=== PATIENT | male | born 1940 | race Caucasian/White ===

== ENCOUNTER 2024-01-14 21:39 | Inpatient (IN) | payer OTHER ==
[~2024-01-14] VITALS: Ht 170.2 cm; Wt 81.6 kg
[2024-01-14 21:50] VITALS: BP_SYST 220; PULSE 69; RESP 20; TEMP 98.4; O2SAT 97
[2024-01-14] MEDS: hydrALAZINE HCL 20 MG/ML VIAL IVP ONE ×2 (22:33→22:58)
[2024-01-14 23:08] LABS: BASOPHILS % (AUTO) 0.6 % (0.0-2.0); EOSINOPHILS # (AUTO) 0.2 K/uL (0.0-0.4); EOSINOPHILS % (AUTO) 2.6 % (0.0-4.0); HEMATOCRIT 34.9 % (36-54); HEMOGLOBIN 12.4 g/dL (14.0-18.0); LYMPHOCYTES # (AUTO) 1.7 K/uL (1.0-5.5); LYMPHOCYTES % (AUTO) 28.7 % (20.5-51.5); MEAN CORPUSCULAR HEMOGLOBIN 34 pg (27-31); MEAN CORPUSCULAR HGB CONC 35 % (32-36); MEAN CORPUSCULAR VOLUME 95 fL (79.0-98.0); MONOCYTES # (AUTO) 0.3 K/uL (0.0-1.0); MONOCYTES % (AUTO) 5.6 % (1.7-9.3); NEUTROPHILS # (AUTO) 3.8 K/uL (1.8-7.7); NEUTROPHILS % (AUTO) 62.5 % (40.0-70.0); PLATELET COUNT (AUTO) 76 K/uL (130-430); RED BLOOD CELL COUNT(AUTO) 3.67 MIL/uL (4.2-6.2); RED CELL DISTRIBUTION WIDTH 14.3 % (9.0-15.0)
[2024-01-14 23:12] LABS: INR 1.1 (0.80-1.20); PROTHROMBIN TIME 10.9 SECS (9.5-12.5)
[2024-01-14 23:31] LABS: ALANINE AMINOTRANSFERASE 34 U/L (12-78); ALBUMIN 3.2 g/dL (3.4-4.8); ANION GAP 10 (5-15); ASPARTATE AMINOTRANSFERASE 21 U/L (10-37); BILIRUBIN,DIRECT 0.1 mg/dL (0.0-0.3); CALCIUM 8.3 mg/dL (8.4-11.0); CARBON DIOXIDE 24 mmol/L (23-29); CHLORIDE 105 mmol/L (98-107); GLUCOSE 92 mg/dL (74-106); POTASSIUM 3.9 mmol/L (3.5-5.1); SODIUM SERUM 139 mmol/L (136-145); TOTAL BILIRUBIN 0.5 mg/dL (0.0-1.0); TOTAL PROTEIN, SERUM 6.3 g/dL (6.4-8.3); UREA NITROGEN, BLOOD 32 mg/dL (8-21)
[2024-01-14 23:47] LABS: BILIRUBIN,URINE NEGATIVE (NEGATIVE); BLOOD, URINE 2+ (NEGATIVE); COLOR,URINE YELLOW (YELLOW); GLUCOSE,URINE NEGATIVE (NEGATIVE); KETONES,URINE NEGATIVE (NEGATIVE); LEUKOCYTE ESTERASE ,URINE NEGATIVE (NEGATIVE); NITRITE, URINE NEGATIVE (NEGATIVE); PROTEIN URINE 3+ (NEGATIVE); UROBILINOGEN,URINE 0.2 (0.2-1.0)
[2024-01-14 23:55] LABS: CLARITY/URINE HAZY (CLEAR)
[2024-01-14 23:56] LABS: BACTERIA,URINE None Seen /HPF (None Seen); RBC,URINE 20-50 /HPF (0-3); WBC,URINE 0-3 /HPF (0-3)
[2024-01-15] MEDS: FUROSEMIDE 100 MG/10 ML VIAL IVP ONE (00:48)
[2024-01-15] MEDS: cloNIDine HCL 0.1 MG TABLET PO PRN (02:04)
[2024-01-15] MEDS ORDERED: HYDR50TA45 PO (03:07)
[2024-01-15] MEDS: hydrALAZINE HCL 20 MG/ML VIAL IVP SCH ×3 (03:15→20:36)
[2024-01-15] MEDS ORDERED: PRAV40TA63 PO (04:16)
[2024-01-15] MEDS ORDERED: TAMS0.4C96 PO (04:16)
[2024-01-15] MEDS ORDERED: LISI40TA13 PO (04:16)
[2024-01-15] MEDS ORDERED: MIRT45TA83 PO (04:16)
[2024-01-15] MEDS ORDERED: ASPI-1393 PO (04:16)
[2024-01-15] MEDS ORDERED: ESCI10TA PO (04:16)
[2024-01-15] MEDS ORDERED: FINA-37 PO (04:16)
[2024-01-15] MEDS ORDERED: CLOP75TA32 PO (04:16)
[2024-01-15] MEDS ORDERED: AMLO2.5T2 PO (04:16)
[2024-01-15] MEDS ORDERED: hydrALAZINE HCL 20 MG/ML VIAL IVP SCH (06:00)
[2024-01-15 08:00] VITALS: BP_SYST 197; PULSE 62; RESP 18; TEMP 98.5
[2024-01-15] MEDS ORDERED: hydrALAZINE HCL 25 MG TABLET PO SCH (09:00)
[2024-01-15] MEDS ORDERED: amLODIPine BESYLATE 5 MG TABLET PO SCH (09:00)
[2024-01-15] MEDS: FINASTERIDE 5 MG TABLET (PROSCAR) PO SCH (10:45)
[2024-01-15] MEDS: ASPIRIN 81 MG TABLET(ECOTRIN) PO SCH (10:45)
[2024-01-15] MEDS: CITALOPRAM HYDROBROMIDE 20 MG TABLET PO SCH (10:45)
[2024-01-15] MEDS: TAMSULOSIN HCL 0.4 MG CAP PO SCH (10:45)
[2024-01-15] MEDS: CLOPIDOGREL BISULFATE 75 MG TABLET PO SCH (10:48)
[2024-01-15 11:03] LABS: BASOPHILS % (AUTO) 0.8 % (0.0-2.0); EOSINOPHILS # (AUTO) 0.1 K/uL (0.0-0.4); EOSINOPHILS % (AUTO) 1.2 % (0.0-4.0); HEMATOCRIT 36.4 % (36-54); HEMOGLOBIN 12.6 g/dL (14.0-18.0); LYMPHOCYTES # (AUTO) 1.7 K/uL (1.0-5.5); LYMPHOCYTES % (AUTO) 28.6 % (20.5-51.5); MEAN CORPUSCULAR HEMOGLOBIN 34 pg (27-31); MEAN CORPUSCULAR HGB CONC 35 % (32-36); MEAN CORPUSCULAR VOLUME 97 fL (79.0-98.0); MONOCYTES # (AUTO) 0.4 K/uL (0.0-1.0); MONOCYTES % (AUTO) 5.9 % (1.7-9.3); NEUTROPHILS # (AUTO) 3.8 K/uL (1.8-7.7); NEUTROPHILS % (AUTO) 63.5 % (40.0-70.0); PLATELET COUNT (AUTO) 81 K/uL (130-430); RED BLOOD CELL COUNT(AUTO) 3.76 MIL/uL (4.2-6.2); RED CELL DISTRIBUTION WIDTH 14.6 % (9.0-15.0)
[2024-01-15 12:18] LABS: ALANINE AMINOTRANSFERASE 26 U/L (12-78); ALBUMIN 3.2 g/dL (3.4-4.8); ANION GAP 11 (5-15); ASPARTATE AMINOTRANSFERASE 18 U/L (10-37); CALCIUM 8.3 mg/dL (8.4-11.0); CARBON DIOXIDE 23 mmol/L (23-29); CHLORIDE 107 mmol/L (98-107); CREATININE 2.31 mg/dL (0.55-1.30); GLUCOSE 101 mg/dL (74-106); POTASSIUM 4.6 mmol/L (3.5-5.1); SODIUM SERUM 141 mmol/L (136-145); TOTAL BILIRUBIN 0.5 mg/dL (0.0-1.0); TOTAL PROTEIN, SERUM 6.2 g/dL (6.4-8.3); UREA NITROGEN, BLOOD 34 mg/dL (8-21)
[2024-01-15 12:30] VITALS: BP_SYST 185; PULSE 90; RESP 18; TEMP 98.3; O2SAT 95
[2024-01-15] MEDS: amLODIPine BESYLATE 5 MG TABLET PO ONE (12:30)
[2024-01-15] MEDS: hydrALAZINE HCL 20 MG/ML VIAL IVP ONE (15:52)
[2024-01-15 16:01] VITALS: BP_SYST 195; PULSE 65; RESP 18; TEMP 98.5; O2SAT 96
[2024-01-15] MEDS: LEVOTHYROXINE SODIUM 0.05 MG TABLET PO ONE (18:49)
[2024-01-15] MEDS: ONDANSETRON HCL 4 MG/2 ML VIAL IVP PRN (18:49)
[2024-01-15] MEDS: FUROSEMIDE 20 MG/2 ML VIAL IVP ONE (18:50)
[2024-01-15 20:00] VITALS: O2SAT 95
[2024-01-15 20:10] VITALS: BP_SYST 186; PULSE 67; RESP 18; TEMP 98.3; O2SAT 95
[2024-01-15] MEDS: MIRTAZAPINE 15 MG TABLET PO SCH (20:35)
[2024-01-15] MEDS: FUROSEMIDE 20 MG/2 ML VIAL IVP SCH (20:37)
[2024-01-16] VITALS (9 sets, daily range): BP systolic 164–178; PULSE 59–75; RESP 16–19; TEMP 98–98.9; O2SAT 95–98
[2024-01-16 05:59] LABS: BASOPHILS % (AUTO) 0.3 % (0.0-2.0); EOSINOPHILS % (AUTO) 0.6 % (0.0-4.0); HEMATOCRIT 36.2 % (36-54); HEMOGLOBIN 12.6 g/dL (14.0-18.0); LYMPHOCYTES # (AUTO) 1.8 K/uL (1.0-5.5); LYMPHOCYTES % (AUTO) 26.4 % (20.5-51.5); MEAN CORPUSCULAR HEMOGLOBIN 34 pg (27-31); MEAN CORPUSCULAR HGB CONC 35 % (32-36); MEAN CORPUSCULAR VOLUME 97 fL (79.0-98.0); MONOCYTES # (AUTO) 0.5 K/uL (0.0-1.0); MONOCYTES % (AUTO) 7.1 % (1.7-9.3); NEUTROPHILS # (AUTO) 4.4 K/uL (1.8-7.7); NEUTROPHILS % (AUTO) 65.6 % (40.0-70.0); PLATELET COUNT (AUTO) 93 K/uL (130-430); RED BLOOD CELL COUNT(AUTO) 3.73 MIL/uL (4.2-6.2); RED CELL DISTRIBUTION WIDTH 14.7 % (9.0-15.0); WHITE BLOOD COUNT (AUTO) 6.7 K/uL (4.8-10.8)
[2024-01-16] MEDS: LEVOTHYROXINE SODIUM 0.05 MG TABLET PO SCH (06:06)
[2024-01-16 06:10] LABS: ALANINE AMINOTRANSFERASE 30 U/L (12-78); ALBUMIN 3.2 g/dL (3.4-4.8); ANION GAP 14 (5-15); ASPARTATE AMINOTRANSFERASE 21 U/L (10-37); CARBON DIOXIDE 21 mmol/L (23-29); CHLORIDE 106 mmol/L (98-107); CREATININE 2.25 mg/dL (0.55-1.30); GLUCOSE 97 mg/dL (74-106); POTASSIUM 3.9 mmol/L (3.5-5.1); SODIUM SERUM 141 mmol/L (136-145); TOTAL BILIRUBIN 0.5 mg/dL (0.0-1.0); TOTAL PROTEIN, SERUM 6.3 g/dL (6.4-8.3); UREA NITROGEN, BLOOD 35 mg/dL (8-21)
[2024-01-16] MEDS ORDERED: amLODIPine BESYLATE 5 MG TABLET PO SCH (09:00)
[2024-01-16] MEDS: amLODIPine BESYLATE 5 MG TABLET PO SCH (09:16)
[2024-01-16] MEDS: METOPROLOL TARTRATE 25 MG TABLET PO ONE ×2 (10:24→12:34)
[2024-01-16] MEDS ORDERED: METOPROLOL TARTRATE 50 MG TABLET PO ONE (12:15)
[2024-01-16] MEDS: METOPROLOL TARTRATE 50 MG TABLET PO SCH (20:17)
[2024-01-16] MEDS ORDERED: METOPROLOL TARTRATE 50 MG TABLET PO SCH (21:00)
[2024-01-16] MEDS ORDERED: METOPROLOL TARTRATE 25 MG TABLET PO SCH (21:00)
[2024-01-17] VITALS (8 sets, daily range): BP systolic 153–181; PULSE 59–68; RESP 16–18; TEMP 97.6–98.8; O2SAT 94–97
[2024-01-17 04:37] LABS: BASOPHILS % (AUTO) 0.5 % (0.0-2.0); EOSINOPHILS # (AUTO) 0.1 K/uL (0.0-0.4); EOSINOPHILS % (AUTO) 1.4 % (0.0-4.0); HEMATOCRIT 36.5 % (36-54); HEMOGLOBIN 12.8 g/dL (14.0-18.0); LYMPHOCYTES # (AUTO) 2.7 K/uL (1.0-5.5); LYMPHOCYTES % (AUTO) 37.5 % (20.5-51.5); MEAN CORPUSCULAR HEMOGLOBIN 34 pg (27-31); MEAN CORPUSCULAR HGB CONC 35 % (32-36); MEAN CORPUSCULAR VOLUME 98 fL (79.0-98.0); MONOCYTES # (AUTO) 0.5 K/uL (0.0-1.0); MONOCYTES % (AUTO) 7.2 % (1.7-9.3); NEUTROPHILS # (AUTO) 3.8 K/uL (1.8-7.7); NEUTROPHILS % (AUTO) 53.4 % (40.0-70.0); PLATELET COUNT (AUTO) 99 K/uL (130-430); RED BLOOD CELL COUNT(AUTO) 3.73 MIL/uL (4.2-6.2); WHITE BLOOD COUNT (AUTO) 7.2 K/uL (4.8-10.8)
[2024-01-17 05:10] LABS: ALANINE AMINOTRANSFERASE 24 U/L (12-78); ALBUMIN 3.2 g/dL (3.4-4.8); ANION GAP 13 (5-15); ASPARTATE AMINOTRANSFERASE 10 U/L (10-37); CALCIUM 7.8 mg/dL (8.4-11.0); CARBON DIOXIDE 22 mmol/L (23-29); CHLORIDE 107 mmol/L (98-107); CREATININE 2.43 mg/dL (0.55-1.30); GLUCOSE 98 mg/dL (74-106); POTASSIUM 3.6 mmol/L (3.5-5.1); SODIUM SERUM 142 mmol/L (136-145); TOTAL BILIRUBIN 0.5 mg/dL (0.0-1.0); TOTAL PROTEIN, SERUM 6.2 g/dL (6.4-8.3); UREA NITROGEN, BLOOD 41 mg/dL (8-21)
[2024-01-17] MEDS: METOPROLOL SUCCINATE 50 MG TAB.SR.24H (TOPROL XL) PO ONE (10:42)
[2024-01-17] MEDS: hydrALAZINE HCL 25 MG TABLET PO ONE (10:43)
[2024-01-17] MEDS: ALBUMIN HUMAN 25% 50 ML IV SCH (13:07)
[2024-01-17] MEDS: METOPROLOL TARTRATE 50 MG TABLET PO ONE (13:29)
[2024-01-17] MEDS: hydrALAZINE HCL 25 MG TABLET PO SCH (15:54)
[2024-01-17] MEDS: NIFEdipine 30 MG TAB.ER.24 PO SCH (20:42)
[2024-01-17] MEDS: METOPROLOL TARTRATE 50 MG TABLET PO SCH (20:42)
[2024-01-18] VITALS (7 sets, daily range): BP systolic 141–177; PULSE 49–66; RESP 16–20; TEMP 97.4–99.2; O2SAT 94–97
[2024-01-18 04:11] LABS: ALANINE AMINOTRANSFERASE 18 U/L (12-78); ALBUMIN 3.2 g/dL (3.4-4.8); ANION GAP 10 (5-15); ASPARTATE AMINOTRANSFERASE 11 U/L (10-37); BASOPHILS % (AUTO) 0.5 % (0.0-2.0); CALCIUM 7.1 mg/dL (8.4-11.0); CARBON DIOXIDE 24 mmol/L (23-29); CHLORIDE 106 mmol/L (98-107); CREATININE 2.25 mg/dL (0.55-1.30); EOSINOPHILS # (AUTO) 0.2 K/uL (0.0-0.4); EOSINOPHILS % (AUTO) 2.9 % (0.0-4.0); GLUCOSE 87 mg/dL (74-106); HEMATOCRIT 29.9 % (36-54); HEMOGLOBIN 10.6 g/dL (14.0-18.0); LYMPHOCYTES # (AUTO) 2.3 K/uL (1.0-5.5); LYMPHOCYTES % (AUTO) 38.7 % (20.5-51.5); MEAN CORPUSCULAR HEMOGLOBIN 34 pg (27-31); MEAN CORPUSCULAR HGB CONC 35 % (32-36); MEAN CORPUSCULAR VOLUME 97 fL (79.0-98.0); MONOCYTES # (AUTO) 0.4 K/uL (0.0-1.0); MONOCYTES % (AUTO) 7.4 % (1.7-9.3); NEUTROPHILS % (AUTO) 50.5 % (40.0-70.0); PLATELET COUNT (AUTO) 95 K/uL (130-430); POTASSIUM 3.7 mmol/L (3.5-5.1); RED BLOOD CELL COUNT(AUTO) 3.08 MIL/uL (4.2-6.2); RED CELL DISTRIBUTION WIDTH 14.7 % (9.0-15.0); SODIUM SERUM 140 mmol/L (136-145); TOTAL BILIRUBIN 0.5 mg/dL (0.0-1.0); TOTAL PROTEIN, SERUM 5.6 g/dL (6.4-8.3); UREA NITROGEN, BLOOD 46 mg/dL (8-21)
[2024-01-18] MEDS ORDERED: METOPROLOL SUCCINATE 50 MG TAB.SR.24H (TOPROL XL) PO SCH (09:00)
[2024-01-18] MEDS: ALBUMIN HUMAN 25% 50 ML IV SCH (13:29)
[2024-01-19] VITALS (8 sets, daily range): BP systolic 108–176; PULSE 49–120; RESP 16–22; TEMP 97.9–98.4; O2SAT 93–98
[2024-01-19 04:09] LABS: ANION GAP 11 (5-15); CALCIUM 7.3 mg/dL (8.4-11.0); CARBON DIOXIDE 23 mmol/L (23-29); CHLORIDE 106 mmol/L (98-107); CREATININE 2.15 mg/dL (0.55-1.30); GLUCOSE 89 mg/dL (74-106); POTASSIUM 3.6 mmol/L (3.5-5.1); SODIUM SERUM 140 mmol/L (136-145); UREA NITROGEN, BLOOD 44 mg/dL (8-21)
[2024-01-19 04:35] LABS: BASOPHILS % (AUTO) 0.7 % (0.0-2.0); EOSINOPHILS # (AUTO) 0.2 K/uL (0.0-0.4); EOSINOPHILS % (AUTO) 3.4 % (0.0-4.0); HEMATOCRIT 29.9 % (36-54); HEMOGLOBIN 10.6 g/dL (14.0-18.0); LYMPHOCYTES # (AUTO) 2.1 K/uL (1.0-5.5); LYMPHOCYTES % (AUTO) 37.8 % (20.5-51.5); MEAN CORPUSCULAR HEMOGLOBIN 34 pg (27-31); MEAN CORPUSCULAR HGB CONC 36 % (32-36); MEAN CORPUSCULAR VOLUME 97 fL (79.0-98.0); MONOCYTES # (AUTO) 0.4 K/uL (0.0-1.0); NEUTROPHILS # (AUTO) 2.8 K/uL (1.8-7.7); NEUTROPHILS % (AUTO) 51.1 % (40.0-70.0); PLATELET COUNT (AUTO) 100 K/uL (130-430); RED CELL DISTRIBUTION WIDTH 14.3 % (9.0-15.0); WHITE BLOOD COUNT (AUTO) 5.5 K/uL (4.8-10.8)
[2024-01-19] MEDS: ATORVASTATIN 20 MG TABLET PO ONE (11:34)
[2024-01-19] MEDS: lisinopriL 5 MG TABLET PO ONE (17:50)
[2024-01-20] VITALS: BP_SYST 177; PULSE 48; RESP 18; TEMP 98.2; O2SAT 99
[2024-01-20 05:08] VITALS: PULSE 55; RESP 20; TEMP 97.4; O2SAT 97
[2024-01-20 05:30] LABS: BASOPHILS % (AUTO) 0.9 % (0.0-2.0); EOSINOPHILS # (AUTO) 0.2 K/uL (0.0-0.4); EOSINOPHILS % (AUTO) 3.7 % (0.0-4.0); HEMATOCRIT 32.6 % (36-54); HEMOGLOBIN 11.2 g/dL (14.0-18.0); LYMPHOCYTES # (AUTO) 2.3 K/uL (1.0-5.5); LYMPHOCYTES % (AUTO) 42.4 % (20.5-51.5); MEAN CORPUSCULAR HEMOGLOBIN 34 pg (27-31); MEAN CORPUSCULAR HGB CONC 35 % (32-36); MEAN CORPUSCULAR VOLUME 97 fL (79.0-98.0); MONOCYTES # (AUTO) 0.4 K/uL (0.0-1.0); MONOCYTES % (AUTO) 7.4 % (1.7-9.3); NEUTROPHILS # (AUTO) 2.5 K/uL (1.8-7.7); NEUTROPHILS % (AUTO) 45.6 % (40.0-70.0); PLATELET COUNT (AUTO) 102 K/uL (130-430); RED BLOOD CELL COUNT(AUTO) 3.34 MIL/uL (4.2-6.2); RED CELL DISTRIBUTION WIDTH 14.8 % (9.0-15.0); WHITE BLOOD COUNT (AUTO) 5.5 K/uL (4.8-10.8)
[2024-01-20 06:18] LABS: ALANINE AMINOTRANSFERASE 20 U/L (12-78); ALBUMIN 3.3 g/dL (3.4-4.8); ANION GAP 12 (5-15); ASPARTATE AMINOTRANSFERASE 6 U/L (10-37); CALCIUM 7.6 mg/dL (8.4-11.0); CARBON DIOXIDE 24 mmol/L (23-29); CHLORIDE 107 mmol/L (98-107); CREATININE 2.18 mg/dL (0.55-1.30); GLUCOSE 92 mg/dL (74-106); SODIUM SERUM 143 mmol/L (136-145); TOTAL BILIRUBIN 0.5 mg/dL (0.0-1.0); TOTAL PROTEIN, SERUM 5.8 g/dL (6.4-8.3); UREA NITROGEN, BLOOD 48 mg/dL (8-21)
[2024-01-20 08:00] VITALS: BP_SYST 174; PULSE 55; RESP 20; TEMP 97.2; O2SAT 96
[2024-01-20] MEDS: lisinopriL 5 MG TABLET PO SCH (08:52)
[2024-01-20] MEDS: ATORVASTATIN 20 MG TABLET PO SCH (08:53)
[2024-01-20] MEDS ORDERED: LISI-209 PO (09:44)
[2024-01-20] MEDS ORDERED: NIFE-129 PO (09:44)
[2024-01-20] MEDS ORDERED: SYN50 PO (09:44)
[2024-01-20] MEDS ORDERED: CLON0.1T PO (09:44)
[2024-01-20] MEDS ORDERED: TOPXL100 PO (09:45)
[2024-01-20 12:09] VITALS: BP_SYST 149; PULSE 52; RESP 18; TEMP 97.9; O2SAT 97
[2024-01-20 12:20] VITALS: BP_SYST 156; PULSE 50; RESP 16; TEMP 97.8; O2SAT 98
[2024-01-20] MEDS ORDERED: NIFEdipine 30 MG TAB.ER.24 PO ONE (13:45)
[2024-01-20] MEDS ORDERED: LABETALOL HCL 100 MG TABLET PO ONE (13:45)
[2024-01-20] MEDS ORDERED: LOSARTAN POTASSIUM 25 MG TABLET PO ONE (13:45)
[2024-01-20] MEDS ORDERED: hydrALAZINE HCL 25 MG TABLET PO SCH (14:00)
[2024-01-20] MEDS ORDERED: LOSARTAN POTASSIUM 25 MG TABLET PO SCH (21:00)
[2024-01-20] MEDS ORDERED: LABETALOL HCL 100 MG TABLET PO SCH (21:00)
[2024-01-21] MEDS ORDERED: NIFEDIPINE 90 MG TABLET.SA (PROCARDIA XL 90 MG) PO SCH (09:00)
== END 2024-01-20 14:45 | disposition home or self-care (01) | DRG 683 ==
LOC: SED 21:39 → STU 01-15 01:01
PROVIDERS: ADMIT Specialist; ATTEND Specialist
PROC: 5A09357 Assistance with Respiratory Ventilation, Less than 24 Consecutive Hours, Continuous Positive Airway Pressure (ICD-10-PCS; principal; 2024-01-19)
DX: N17.9 Acute kidney failure, unspecified (principal); C64.2 Malignant neoplasm of left kidney, except renal pelvis; I16.1 Hypertensive emergency; I12.9 Hypertensive chronic kidney disease with stage 1 through stage 4 chronic kidney disease, or unspecified chronic kidney disease; E03.9 Hypothyroidism, unspecified; I25.10 Atherosclerotic heart disease of native coronary artery without angina pectoris; E78.5 Hyperlipidemia, unspecified; N40.0 Benign prostatic hyperplasia without lower urinary tract symptoms; M16.12 Unilateral primary osteoarthritis, left hip; Z79.82 Long term (current) use of aspirin; Z79.899 Other long term (current) drug therapy; Z95.5 Presence of coronary angioplasty implant and graft; N18.1 Chronic kidney disease, stage 1
CPT/HCPCS: 36415; 71045; 76700; 80048; 80053; 80076; 81000; 81001; 81015; 83880; 84443; 84484; 85025; 85610; 85730; 93005; 93306; 96374; 97110-GP; 97116-GP; 97530-GP; 99291; A9562; G0378; J0360; J1940; J2405; P9046